=== PATIENT | female | born 1945 | race Caucasian/White ===

== ENCOUNTER → 2016-12-02 | Day surgery (SDC) | payer MEDICARE, OTHER ==
[~2016-12-02] MED LIST: Lactated Ringers 1,000 ML IV SCH; Propofol 200 MG/20 ML SDV IV ONE
[2016-12-02 09:49] VITALS: BP 130/84
--- NOTE | 2016-12-06 07:28 | OR ---
DATE OF OPERATION: 12/02/2016 PREOPERATIVE DIAGNOSIS: 1. GASTROESOPHAGEAL REFLUX DISEASE. 2. HEMATOCHEZIA. POSTOPERATIVE DIAGNOSIS: 1. GASTROESOPHAGEAL REFLUX DISEASE. 2. HEMATOCHEZIA. SURGEON: Omar Byrd MD PROCEDURE: 1. FULL-LENGTH ESOPHAGOGASTRODUODENOSCOPY WITH BIOPSIES X3, SADI. 2. FULL-LENGTH COLONOSCOPY. ANESTHESIA: [employer] OF SALES due to obesity. COMPLICATIONS: None. SPECIMEN: 1. Antral biopsy x2. 2. Distal esophageal biopsy x1. 3. SADI. FINDINGS: 1. Full-length EGD. 2. Antral gastritis with focal ulcer. 3. Spontaneous GERD with minimal esophagitis. 4. Full-length colonoscopy. 5. Mild to moderate sigmoid diverticulosis. RECOMMENDATIONS: Medical therapy. Follow up colonoscopy in 5 years. INDICATIONS: The patient apparently has been having some occasional hematochezia with stools. She admits to tenderness in the epigastric area and heartburn. Dr. Lockhart sent her for upper and lower endoscopy. DESCRIPTION OF PROCEDURE: The patient was prepped and draped, placed in the left lateral decubitus position. A lubricated Olympus gastroscope was inserted and easily intubated in the esophagus. Esophageal lining was essentially benign in its entire course. Right at the Z-line around 37-38 cm, there was a focal area of inflammation. No mass or Goldman's signs. No stricturing. There was no associated hiatal hernia, but spontaneous GERD was seen. Did do a biopsy of that area. The scope was advanced into the stomach through the pylorus into the second portion of duodenum. This in the duodenal bulb appeared benign. The scope was brought back into the stomach and retroflexed. The upper fundus and cardia appeared completely benign. Upon straightening, the rest of the fundus looked unremarkable as well. The antrum had signs of peptic ulcer disease with some acute gastritis changes at its most distal portion and a focal erosion right near the pylorus. We did do biopsies x2 and a SADI test. No other masses, polyps or lesions were seen. Air was suctioned. Scope was removed without complication. A lubricated Olympus colonoscope was then inserted and easily advanced to the cecum. Direct visualization of the ileocecal valve and appendiceal orifice was accomplished. The bowel prep was adequate. Upon withdrawal, the cecum, ascending, transverse and descending colons were completely benign. Throughout the sigmoid colon, the patient did have scattered diverticula, mild to moderate in severity without any inflammatory change. There were no polyps, mass, ulceration, or bleeding sites. No vascular abnormalities or signs of colitis. The rectal vault was unremarkable. Retroflexion of scope in the rectum showed no perianal lesions, little bit of hemorrhoidal tissue present. Air was then suctioned. Scope was removed without complication. FEDE /[id number]
== END ==
LOC: CC.SDS 07:54
PROVIDERS: ATTEND Family Medicine
DX: K57.30 Diverticulosis of large intestine without perforation or abscess without bleeding (principal); K29.50 Unspecified chronic gastritis without bleeding; K21.9 Gastro-esophageal reflux disease without esophagitis; B33.20 Viral carditis, unspecified; K25.9 Gastric ulcer, unspecified as acute or chronic, without hemorrhage or perforation; I10 Essential (primary) hypertension; Z88.8 Allergy status to other drugs, medicaments and biological substances; Z79.82 Long term (current) use of aspirin; Z79.899 Other long term (current) drug therapy
CPT/HCPCS: 43239; 45378; 87081; J2704; J7120; 00810; 88305